=== PATIENT | female | born 1985 | race Caucasian/White ===

== ENCOUNTER → 2019-01-21 07:51 | Outpatient (CLI) | payer OTHER, SELFPAY ==
--- NOTE | 2019-01-21 07:54 | DI.US.S_ITS ---
PROCEDURE: US PELVIC COMPLETE INDICATIONS: DUB TECHNIQUE: Real-time scanning was performed of the pelvic organs, with image documentation. Additional endovaginal scanning was necessary due to incomplete visualization of the adnexal and endometrial structures by transabdominal scanning. COMPARISON: None. FINDINGS: Transabdominal scanning: Limited scanning through the kidneys shows no hydronephrosis. No pathologic free abdominal or pelvic fluid. Endovaginal scanning: Uterus: Uterus is normal in size at 4.8 x 6.1 x 8.9 cm. The endometrium measures 2.6 mm in combined thickness. Ovaries: The right ovary contains a 3.5 x 2.4 x 3.4 cm cyst with resultant mild enlargement of the right ovary overall measuring 4.2 x 2.6 x 3.5 cm. The left ovary measures 2.7 x 0.9 x 1.3 cm. IMPRESSION: Normal appearing uterus and endometrial lining, but there is a cyst that measures up to 3.5 x 2.4 x 3.4 cm at the right ovary. The left ovary appears normal. Followup pelvic ultrasound in 6-8 weeks is recommended to confirm resolution of the moderately large abnormal cysts discussed above. Dictated by: Eliazar Hightower M.D. on 01/21/2019 at 9:46 Approved by: Eliazar Hightower M.D. on 01/21/2019 at 9:48
== END ==
PROVIDERS: PCP Physician Assistant; Visit Provider Specialist
DX: N93.8 Other specified abnormal uterine and vaginal bleeding (principal); N83.201 Unspecified ovarian cyst, right side
CPT/HCPCS: 76830; 76856

== ENCOUNTER 2019-05-22 12:00 | Day surgery (SDC) | payer OTHER, SELFPAY ==
[2019-05-07 08:09] VITALS: BMI 20.6
[2019-05-22] VITALS (11 sets, daily range): BP systolic 103–135; BP diastolic 65–98; PULSE 65–107; RESP 11–17; TEMP 36.2–37.1; O2SAT 96–100; BMI 20.6
--- NOTE | 2019-05-22 | PATH_ITS ---
[facility] Accession Number: [id number] . 01 Material submitted: . endometrium - ENDOMETRIAL BIOPSY . 02 Diagnosis: Endometrial Biopsy: Portions of weakly proliferative endometrium; negative for glandular hyperplasia, cytologic atypia, and malignancy. Occasional tissue fragments demonstrate prominent vessels, suggestive of polyp, if clinical and imaging findings are concordant. . I/05/26/2019 . 02 Electronically signed: . Daphne Nettles MD, Pathologist NPI- [id number] . 01 Gross description: . ENDOMETRIAL BIOPSY: Received in formalin are minute fragments of mucoid and hemorrhagic material measuring 4.7 x 2.5 x 0.5 cm in aggregate. Submitted in toto in 2 cassettes. /CKI /CKI . 02 Pathologist provided ICD-10: N85.00 . 02 CPT . 160256 Performed at: 01 [facility] [address], [place], [place] [id number] MD Kody Looney MD Phone: [phone] Performed at: 02 [facility] [address] [place], [place] [id number] MD Gela Cueto MD Phone: [phone]
[2019-05-22] MEDS: LACTATED RINGERS 1,000 ML 100 ML IV ×2 (12:45→14:36)
[2019-05-22] MEDS: LACTATED RINGERS 1,000 ML 42 ML IV (13:07)
--- NOTE | 2019-05-22 13:18 | PM.PREOP ---
Pre-operative Note Interval Note History & Physical reviewed/Exam performed by Physician: Yes Changes to H&P: No
--- NOTE | 2019-05-22 13:28 | SUR.OPER ---
Lithotomy on padded OR bed, head on pillow, arms secured on padded arm boards at <90 degrees abduction. Legs secured in padded yellow fins stirrups.
[2019-05-22] MEDS: BUPIVACAINE 0.5% W/ EPI (PF) VIAL 30 ML INJ (14:07)
--- NOTE | 2019-05-22 14:35 | PM.OP.1 ---
Operative Date/Time/Diagnoses Date of procedure: 05/22/19 Time of procedure: 14:36 Pre-op diagnosis: Menorrhagia and sterilization Post-op diagnosis: same Procedure & Clinicians Procedure: Laparoscopic tubal ligation by fulguration with hysteroscopy, endometrial curettage, and NovaSure endometrial ablation Same procedure as scheduled: No (Lesions seen on hysteroscopy was biopsied) Indications: Menorrhagia with undesired fertility and request for sterilization Surgeon: Yoon Espinosa Click Yes if Unassisted: Yes Anesthesia Type: General Operative Notes Findings: The normal fallopian tubes, left ovarian simple cyst otherwise normal ovaries, normal bowel surfaces, normal liver edge, normal gallbladder dome, normal appearing uterus, vascular lesion probable polyp at the internal os of the uterus on the posterior wall otherwise no uterine abnormalities. Closure Type: primary Specimen(s): other (Endometrial biopsy) Estimated Blood Loss (mL): 5 Blood products transfused: none Procedure in detail: Patient was brought to the operating room where she underwent general anesthesia. She was placed in low yellowfin stirrups and prepped and draped in usual sterile fashion. Pulsatile stockings were in place and functional. Warming was with blankets. The area of the incisions were injected with half percent Marcaine with epinephrine. An incision was made in the umbilicus with a scalpel and the Verres needle placed in the abdomen. Confirmation of correct placement of the needle was performed by withdrawing on the syringe and then allowing fluid to fall freely through the needle. The abdomen was insufflated to 3 L of CO2. A 5 mm trocar was placed under direct visualization. A 2nd 5 mm trochars were placed in the right lower quadrant under direct visualization after incising the skin. There did not appear to be any damage with placement of the trocars. The right fallopian tube was grasped and cauterized in 3 places with cutting in the middle with the PK generator. Same procedure was performed on the left fallopian tube. The left ovarian simple cyst was drained and the edge of the cyst cauterized. A small area of possible endometriosis on the anterior bladder flap was cauterized. Adequate hemostasis was noted. The CO2 was allowed to escape from the abdomen. The trochars were removed. Skin was closed with 4-0 monocryl. A single-tooth tenaculum was placed on the anterior lip of the cervix. The cervix was already significantly dilated. The hysteroscope was placed through the cervix into the uterus with saline solution run. Curettage was performed. The tissue was sent to pathology. The endometrial lining was very thin. The NovaSure sound was used to determine the length of the uterus which was 6 cm. This was set on the NovaSure device. The device was placed in the uterus and the width determined to be 4.2 cm. The length and width were entered into the NovaSure machine. The plunger was pushed to the cervix to effect a good vacuum seal. This was documented by the machine. Cauterization was done with a total power of 139 and 52 seconds. The NovaSure array was pulled back into the device and then the device removed. The hysteroscope was replaced and it did look like there was good ablation of the entire lining. Counts of instruments and sponges were correct. Patient went to recovery room in good condition. Complications: none Condition: stable Disposition: same day surgery Plan for aftercare: Home when awake and stable
--- NOTE | 2019-05-22 14:36 | SUR.OPER ---
Novasure: length 6.0, width 4.2, power 139, total time: 51.85 seconds.
[2019-05-22] MEDS: fentaNYL 100 MCG/2 ML INJ 50 MCG IV ×2 (14:55→15:06)
[2019-05-22] MEDS: OXYCODONE/ACETAMINOPHEN 5/325 TABLET 1 TAB PO ×2 (15:22→16:15)
--- NOTE | 2019-05-22 16:30 | SUR.PHASEII ---
Post op Phase 2: Note- VSS, O2 sat WNL. Pain level 3/10. Medicated with second dose of oral pain medication. C/O cramping pain. Tolerating PO without nausea. Vision improving. Patient states that she is feeling better. Daughter at bedside. Continue with plan of care.
== END 2019-05-22 17:05 | disposition home or self-care (01) ==
PROVIDERS: PCP Physician Assistant; Visit Provider Specialist
PROC: 0U5B8ZZ Destruction of Endometrium, Via Natural or Artificial Opening Endoscopic (ICD-10-PCS; CPT 58563; principal; 2019-05-22 13:30)
PROC: (CPT 58671; 2019-05-22 13:30)
DX: N92.0 Excessive and frequent menstruation with regular cycle (principal); Z30.2 Encounter for sterilization; N83.292 Other ovarian cyst, left side
CPT/HCPCS: 58670; 58563; J1100; J1885; J2250; J2405; J2704; J3010

== ENCOUNTER → 2021-08-08 15:24 | Outpatient (CLI) | payer OTHER, SELFPAY ==
[2021-08-08 15:51] LABS: COVID19 -Nasal RAPID Negative (Negative)
== END ==
PROVIDERS: PCP Physician Assistant; Visit Provider Obstetrics & Gynecology
DX: Z20.822 Contact with and (suspected) exposure to COVID-19 (principal); Z01.812 Encounter for preprocedural laboratory examination
CPT/HCPCS: 87635

== ENCOUNTER 2021-08-09 12:26 | Day surgery (SDC) | payer OTHER, SELFPAY ==
[2021-08-08 08:39] VITALS: BMI 21.9
[2021-08-09] VITALS (15 sets, daily range): BP systolic 100–125; BP diastolic 50–85; PULSE 62–87; RESP 10–18; TEMP 35.8–37.7; O2SAT 95–100; BMI 21.9
--- NOTE | 2021-08-09 | PATH_ITS ---
[facility] Accession Number: [id number] . 01 Material submitted: . PART A: peritoneum - PERITONEAL BIOPSY PART B: uterus - UTERUS, BILATERAL FALLOPIAN TUBES . 01 Clinical history: . *OPB* . 02 Diagnosis: A. Peritoneal Biopsy: Fibroconnective tissue and patchy glandular epithelium, consistent with involvement by endometriosis. . B. Uterus, Bilateral Fallopian Tubes, Laparoscopic Supracervical Hysterectomy with Bilateral Salpingectomy and Resection and Cauterization of Peritoneal Endometriosis (Weight 59 grams): Disordered proliferative endometrium; negative for glandular hyperplasia, cytologic atypia, or malignancy. Myometrium with an intramural leiomyoma (10 mm). Uterine serosa with no significant histomorphologic abnormality. Fallopian tubes x2 with benign paratubal cysts (5 mm); negative for atypia or malignancy. [facility] 08/15/2021 1424 Local . 02 Electronically signed: . Daphne Nettles MD, Pathologist NPI- [id number] . 01 Gross description: . A. Received in formalin labeled with the patient's name and peritoneal biopsy is a 0.6 x 0.5 x 0.3 cm whaley-brown soft tissue. The specimen is entirely submitted in cassette A1. B. Received in formalin labeled with the patient's name and uterus, bilateral fallopian tubes is a 59 gram supracervical hysterectomy specimen measuring 6.1 cm cornu to cornu, 5.2 cm fundus to lower uterine segment, and 4.1 cm anterior to posterior. The uterus is previously opened and the remaining serosa is smooth. One subserosal nodule is present measuring 1.1 cm in greatest dimension. The endometrium is difficult to visualize due to the way the specimen is opened. One myometrial nodule is present measuring 0.4 cm in greatest dimension. This nodule has a whaley-white whorled cut surface. The fallopian tubes are detached and unoriented. They measure 4.5 cm in length x 0.4 cm in diameter and 4.2 cm in length x 0.5 cm in diameter. Both tubes have fimbriated ends, and one paratubal cyst is present on each tube, both measuring 0.5 cm in greatest dimension. Home Care Manager Rn sections are submitted as follows: . B1: Endomyometrium with nodule. B2: Endomyometrium. B3: Lower uterine segment. B4: One fallopian tube cross section, cyst and fimbriated end. B5: Other fallopian tube cross section, cyst and fimbriated end. B6-B9: Additional community health program representative sections of endometrium and leiomyomata. (CHANTAL:[id number]) /[facility] 08/15/2021 [facility]2 Local . 02 Pathologist provided ICD-10: N92.0, N99.85, N80.9, D25.9 . 02 CPT . 763939, 511341 Performed at: [address] [facility] [address] [place] [address], [place], [place] [id number] MD Kody Looney MD Phone: [phone] Performed at: 02 [facility] [address] [place], [place] [id number] MD Gela Cueto MD Phone: [phone]
[2021-08-09] MEDS: LACTATED RINGERS 1,000 ML 42 ML IV ×2 (13:25→15:07)
--- NOTE | 2021-08-09 13:32 | PM.PREOP ---
Pre-operative Note COVID-19 COVID-19 status: Negative Result date/Date tested (Pos, Neg/Pending): 08/08/21 Interval Note History & Physical reviewed/Exam performed by Physician: Yes Changes to H&P: No
[2021-08-09] MEDS: APREPITANT 40 MG CAPSULE PO (13:47)
[2021-08-09] MEDS: CEFAZOLIN 1 GM VIAL 2 GM IV (14:00)
--- NOTE | 2021-08-09 14:23 | SUR.OPER ---
Lithotomy on padded OR bed. [place] Pad Positioner under torso. Head on pillow, arms padded and tucked at sides. Legs secured in padded yellow fins stirrups.
[2021-08-09] MEDS: ROPIVACAINE 0.2% PF 2 MG/ML 10ML AMP 20 ML INJ (14:34)
[2021-08-09] MEDS: BUPIVACAINE 0.5% (PF) 30 ML, EPINEPHrine 0.15 MG INJ (14:35)
--- NOTE | 2021-08-09 15:29 | PM.OP.1 ---
Operative Date/Time/Diagnoses Date of procedure: 08/09/21 Time of procedure: 15:29 Pre-op diagnosis: Dysmenorrhea and menorrhagia Post-op diagnosis: same Procedure & Clinicians Procedure: Laparoscopic supracervical hysterectomy with bilateral salpingectomies and resection and cauterization peritoneal endometriosis Same procedure as scheduled: Yes (Peritoneal endometriosis found at time of surgery and treated) Indications: Patient is status post tubal ligation and endometrial ablation who continued to have dysmenorrhea and menorrhagia Surgeon: Yoon Espinosa Fish Hatchery Manager: Nba Vigil Click Yes if Unassisted: No Anesthesia Type: General Operative Notes Findings: Normal uterus with scar tissue from her endometrial ablation preventing placement of a uterine manipulator and 1 small anterior wall subserosal fibroid. Normal appearing ovaries bilaterally. Normal-appearing tubes status post tubal ligation bilaterally. Perineal endometriosis in the posterior cul-de-sac, bilateral uterosacral ligaments, right side wall near the cecum Closure Type: primary Specimen(s): other (Uterus without the cervix, bilateral fallopian tubes, peritoneal endometriosis) Applied: catheter (Grant) Estimated Blood Loss (mL): 25 Blood products transfused: none Procedure in detail: Patient is brought to the operating room where she underwent general anesthesia and placed in [facility]. She was prepped and draped in the usual sterile fashion. A check list was reviewed with the staff in the room prior to beginning of the case. Patient had pulsatile stockings in place and functional. 2 g of Ancef were in prior to beginning of the case.. A Grant catheter was placed. A single-tooth tenaculum was placed on the anterior lip of the cervix and the cervix but dilation was unable to be performed due to scar tissue from her prior ablation. The area of the umbilical incision and the 5 mm right and left lower quadrant incisions were injected with Marcaine. An incision was made with scalpel. The verries needle was placed into the abdomen and confirmed in the appropriate place with withdrawal on a syringe and then free flow of fluid down through the needle. The abdomen was insufflated with CO2. The needle was removed and a 5 mm trocar placed without difficulty. There did not appear to be any damage is placement of the trocar. The right and left lower quadrant incisions were made with the scalpel and the trochars placed without damage to internal structures. The PK forceps were used to cauterize and cut along the mesosalpinx followed by the round ligaments on both sides. Sequential bites were taken down the broad ligaments. The uterine arteries were cauterized. An incision was made above the level bladder pushing the bladder away from the cervix. The JAYY loop was placed around the uterus and the uterus was amputated above the level of the bladder. Bleeding was controlled with the PK forceps. The PK forceps were used to cauterize in the endocervical canal. A supracervical incision was made and an 11 mm port placed. A 15 mm Endo Catch bag was placed in the abdomen. The uterus, tubes and ovaries were placed in the bag and brought up through the suprapubic port site. The Umair O was placed. The uterus was hand morselized. The abdomen was reinsufflated and adequate hemostasis was noted. 10 cc of ropivacaine was placed over the cervix stump. Trochars were removed and the CO2 allowed escape from the abdomen. The fascia layer of the suprapubic site was repaired with 0 Polysorb suture. Skin was closed with 4-0 Monocryl suture at the suprapubic site and the other 3 sites. The patient went to recovery room in good condition. Counts of instruments and sponges were correct. Dr. Vigil was present throughout the case to assist with holding the camera, retracting, cauterizing and cutting the structures on the left side of the patient, as well as assisting with morselization of the uterus. Complications: none Post-operative Condition: stable Disposition: Acute Care Plan for aftercare: Home in a.m. when stable, tolerating regular diet, ambulatory
--- NOTE | 2021-08-09 15:44 | SUR.PHASEI ---
Patient to PACU with Anesth and Rn with SBAR report at bedside. Medicated for pain by Anesth at 1540 with Fent for cramping. Pt breathing unassisted.
[2021-08-09] MEDS: ONDANSETRON 4 MG/2 ML INJ IV (16:11)
[2021-08-09] MEDS: OXYCODONE/ACETAMINOPHEN 5/325 TABLET 1 TAB PO (16:14)
--- NOTE | 2021-08-09 16:33 | SUR.PHASEI ---
Patient transferred to room 225 by Marta CARBALLO and Hubert Carballo with patient belongings and pain 2/10 intermittent.
[2021-08-09] MEDS: LACTATED RINGERS 1,000 ML 100 ML IV (17:17)
[2021-08-09] MEDS: KETOROLAC 30 MG/ML VIAL IV ×2 (17:17→22:53)
[2021-08-09] MEDS: DOCUSATE 100 MG CAPSULE 200 MG PO (20:32)
[2021-08-09] MEDS: ALPRAZolam 0.5 MG TABLET 1 MG PO (23:01)
--- NOTE | 2021-08-10 01:30 | PC.NURSE ---
Theatre Arts Professor Note- Patient arrived to floor on day shift approx 1630. Admission completed at that time. Patient alert and oriented and and able to make needs known to staff. No complaints of N/V. Patient reports pain/discomfort tolerable after scheduled toradol. Patient did complain of feelings of full bladder and need to void with alvares in place. very little urine noted in alvares bag and tubing clear. moved alvares bag and sat patient up and urine began to flow. over 600cc's noted in the next 5 minutes and patient reported feeling much better. patient took a walk in hallway, walked entire floor loop without issue. lap surgical sites to abdomin c/d/i. Patient calls approprioatly for assistance. Call smith and phone within reach. Will continue to monitor.
[2021-08-10] MEDS: LACTATED RINGERS 1,000 ML 100 ML IV (01:58)
[2021-08-10 04:28] VITALS: BP 91/56; PULSE 76; RESP 18; TEMP 37.1; O2SAT 98
[2021-08-10] MEDS: KETOROLAC 30 MG/ML VIAL IV ×2 (04:29→10:00)
[2021-08-10 07:30] VITALS: BP 107/68; PULSE 75; RESP 19; TEMP 36.6; O2SAT 99
[2021-08-10] MEDS: OXYCODONE/ACETAMINOPHEN 5/325 TABLET 1 TAB PO (07:42)
--- NOTE | 2021-08-10 07:51 | PM.DS.1 ---
History of Present Illness History of Present Illness Date Patient Seen: 08/10/21 Time Patient Seen: 07:51 Chief complaint: *OPB* Narrative: Patient is postoperative laparoscopic supracervical hysterectomy with bilateral salpingectomy and resection and cauterization of peritoneal endometriosis Discharge Providers Provider Discharge Date: 08/10/21 Primary care physician: Linn Novak PA-C Discharge provider: Yoon Espinosa MD Summary Hospital Course Discharge Diagnosis: Menorrhagia and dysmenorrhea status post laparoscopic supracervical hysterectomy with bilateral salpingectomies and resection and cauterization of peritoneal endometriosis. Hospital Course: Patient underwent surgery on 08/09/2021. She is ambulatory. She is passing gas. She is tolerating regular diet. Her pain is under control with her pain medicine. She is passing gas. Status at Discharge Cognitive/behavioral status at discharge: oriented Functional status at discharge: independent ambulation Overall status at discharge: patient is progressing back to baseline Time Spent with Patient Time spent: Less than 30 minutes Exam Vital Signs (past 8 hours): - 08/10/21 04:28 Temperature 98.7 F Pulse Rate 76 Respiratory Rate 18 Blood Pressure 91/56 L Pulse Oximetry 98 Oxygen Delivery Method Room Air Oxygen Flow Rate 0 Narrative Exam Narrative: Abdomen is soft, nontender. Incisions are clean, dry, intact. No vaginal bleeding. Extremities without edema and nontender. [facility] Medical History (Updated 08/05/21 @ 16:24 by Yoon Espinosa MD) Preoperative exam for gynecologic surgery Surgical History (Updated 08/09/21 @ 15:27 by Yoon Espinosa MD) H/O tubal ligation (05/22/19) History of third molar tooth extraction S/P endometrial ablation Status post appendectomy Social History household members: spouse and children Smoking Status: Never smoker alcohol intake: current Discharge Assessment & Plan Assessment and Plan Assessment: Patient is doing well postoperative laparoscopic supracervical hysterectomy with bilateral salpingectomies and resection and cauterization of perineal endometriosis Plan of Treatment: Discharge home. Patient has postop appointment. Routine precautions reviewed with the patient. Discharge Plan Discharge Plan Patient Disposition: Home Discharge orders & Medications Discharge Orders: Discharge (Order); Ordered 08/10/21 Ordered By: Yoon Espinosa Prescriptions: Continued alprazolam [Xanax] 1 MG tablet 1 mg PO Q6HP PRN (Reason: Anxiety) Qty: 0 RF: 0 sumatriptan succinate [Imitrex] 25 MG tablet 25 mg PO DAILY PRN (Reason: migraines) Qty: 0 RF: 0 oxycodone-acetaminophen 5-325 mg tablet 1 tab PO Q4H PRN (Reason: pain) Qty: 20 RF: 0 Follow up/Referrals: Yoon Espinosa MD [Physician] - (Patient has appointment on at 2:00 p.m.) Linn Novak PA-C [Primary Care Provider] - Diet/Activity/Treatments Diet: Regular Activity: Patient to avoid heavy activity for 1 week than no restrictions Skin/Wound/Dressing Care Report to your healthcare provider any signs of infection, such as:: chills, fever, increased pain and unusual redness Dressing: Remove Band-Aids later today. Leave Steri-Strips in place. Can get wet just pat dry. After 1 week get wet and rub off Visit Report/Discharge Packet Instructions: DI for Laparoscopy Discharge Data Primary Care Provider: Linn Novak Attending Provider: Yoon Espinosa Quality VTE Deep Vein Thrombosis/Pulmonary Embolism Present on Admission: No
[2021-08-10] MEDS: DOCUSATE 100 MG CAPSULE 200 MG PO (08:23)
--- NOTE | 2021-08-10 11:02 | CM.DANOTE ---
DCP Assessment: Patient is a 36 yr old female who has a Laparoscopic supracervical hysterectomy with bilateral salpingectomies and resection and cauterization peritoneal endometriosis preformed by Dr Espinosa. CM met with patient at the bedside and explained role. Patient was alert and oriented x4 during meeting. patient currently lives with her Sergo and minor children. patient is Independent and drives at baseline and does not use any DME. I: Premerea and self pay Plan: DC home with spouse Sergo. No DC needs noted at this time CM will continue to follow to assist with any DC planning needs that may arise. Jenn Ott RNfield sales manager Discharge Planning/Care Management CM Discharge Assessment Start: 08/10/21 10:59 Freq: Status: Discharge Protocol: Document 08/10/21 10:59 HS (Rec: 08/10/21 11:01 [id number]) Discharge Planning Assessment Assigned Military Professional Jenn Ott RNfield sales manager DPOA/Assigned Designee Name Sergo Astudillo () Contact Information [phone] Advance Directives? No History Provided By Patient,Medical Record Prior Living Arrangements House Household Members spouse,children Type of transporation used prior to Drives own vehicle admit Independent with ADL's Yes Is patient alert and oriented? Yes Caregiver for Another Yes: has young children at home Barriers to Discharge No Discharge Plan Home Referrals Initiated None needed Whiteboard Updated in Patient Room with Yes name and ext. # of Military Professional Review Status In Process Next Review Type Continued Stay Review Pre-Anesthesia Assessment Start: 08/08/21 08:39 Freq: Status: Complete Protocol: Document 08/08/21 08:39 CAB (Rec: 08/08/21 08:45 CAB [id number]) Pre-Anesthesia Assessment Patient Information Reviewed Via Chart Review Comment COVID screen @ 08/08/21 Primary Care Provider Linn Novak Seen Specialist in Last 12 Months Yes Specialist Seen [place] Primary Language Ukrainian Tableau Report Developer Required No Height 157.48 cm Weight 54.431 kg Body Mass Index (BMI) 21.9 Barriers to Learning None Other Aids No Hx Anesthesia Reactions No Hx Family Anesthesia Reaction No Hx Malignant Hyperthermia No Anesthesia Review Requested No Canvas Cutter Hand No Smoking Status Never smoker History of Falling (Recent or History of No ) Patient is completely paralyzed or No completely immobile Is patient on oxygen? No Does patient have JAVED/SOB No Hx Sleep Apnea No CPAP/BIPAP use not prescribed Currently Taking a Beta Araceli No Hx Chest Pain No Hx SOB No Hx Syncope or Dizziness No Anti-Coagulant Therapy No Has a Tin Pourer No Cardiac Testing No Hx Pacemaker/ICD No Pacemaker Rep Required? No Cardiac Clearance Received Not Applicable Urinary Catheter Present No Hx Urinary Self Catheterization No Diabetes No Patient No Lactating No Comment LMP 07/18/21 Presence of External or Internal Medical No Devices Marital Status Lives With spouse Patient Discharge Plan Description Return Home Advance Directives? No
== END 2021-08-10 10:42 | disposition home or self-care (01) ==
LOC: OR 12:26 → AC 12:28
PROVIDERS: PCP Physician Assistant; Referring Provider Specialist; Visit Provider Specialist
PROC: 0UT94ZL Resection of Uterus, Supracervical, Percutaneous Endoscopic Approach (ICD-10-PCS; CPT 58542; principal; 2021-08-09 13:30)
DX: N80.3 Endometriosis of pelvic peritoneum (principal); D25.1 Intramural leiomyoma of uterus; N83.8 Other noninflammatory disorders of ovary, fallopian tube and broad ligament
CPT/HCPCS: 58542; 58662; 81025; J0171; J0690; J1885; J2250; J2405; J2795; J3010; J8501